=== PATIENT | male | born 1950 | race Caucasian/White ===

== ENCOUNTER → 2017-03-21 | Outpatient (CLI) | payer OTHER ==
[~2017-03-21] MED LIST: ALBUPOW26; AMLO10 PO; ASPI1POW; CIME300T PO; MEVA40TA6 PO; PRED20 PO; SALM50I INH; TAMS0.4C67 PO; TOPR50TA PO; VITA400C70 PO; [UNRECOGNIZED DRUG - OTHER]
== END ==
LOC: HRSP 09:13
PROVIDERS: ATTEND Internal Medicine Pulmonary Disease
DX: J45.909 Unspecified asthma, uncomplicated (principal)
CPT/HCPCS: 94060; 94620; 94726; 94729